=== PATIENT | male | born 1945 | race Caucasian/White ===

== ENCOUNTER 2019-01-28 09:43 | Emergency (ER) | payer MEDICARE ==
--- OUTSIDE RECORDS SUMMARY | 2019-01-28 10:34 | XMS REPORT | Continuity of Care Document ---
:1945 External Reference #:[id number] Author Name Cheryl Hernández M.D. Address [address] 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 Onset: 01/02/2019 Screening for malignant neoplasm of prostate Cheryl Hernández M.D. Onset: 04/2018 Screening for malignant neoplasm of colon Slick Thomas MD Onset: 09/13/2016 Social History Type Date Description Comments Sex Unknown Tobacco Use Start: Unknown Never Smoked Cigarettes Smokeless Tobacco Never Used Smokeless Tobacco ETOH Use Occasionally consumes alcohol Tobacco Use Start: Unknown Patient has never smoked Recreational Drug Use Denies Drug Use Smoking Status Reviewed: 12/27/18 Patient has never smoked Allergies, Adverse Reactions, Alerts Active Allergies Reaction Severity Comments Date Aleve Difficulty breathing, Flushing 11/28/2018 Inactive Allergies NKDA 12/03/2013 Medications Active Medications SIG Qnty Indications Ordering Provider Date Losartan Potassium 1 po qd 30tabs Unknown 50mg Tablets Atorvastatin Calcium Take One Tablet Unknown 10mg By Mouth Every Tablets Evening Tylenol 8 Hour one by mouth Unknown 650mg every 6 hours as Tablets ER needed pain History Medications Cephalexin 1 tab by mouth once 30tabs Jabari Hernándezud, 12/23/2018 - 500mg given in office before M.D. 12/24/2018 Tablets procedure with take home pack with instructions Gentamicin Sulfate given once in office 2ml EdgarJoannajay, 12/23/2018 - for in office M.D. 12/24/2018 40mg/ml Solution procedure. given intramuscular - 80 mg Medications Administered in Office Medication SIG Qnty Indications Ordering Provider Date Injection Gentamicin To Cheryl Hernández M.D. 12/23/2018 40MG/ML Injection Depomedrol 40mg/1cc Ayan Galloway D.O. 12/01/2013 (methylprednisolone acetate) Injection Immunizations Description No Information Available Vital Signs Date Vital Result Comment 01/02/2019 3:57pm BP Systolic 129 mmHg BP Diastolic 70 mmHg Body Temperature 98.2 F Heart Rate 60 /min Respiratory Rate 16 /min Height 62 inches 5'2" Weight 156.12 lb BMI (Body Mass Index) 28.6 kg/m2 BSA (Body Surface Area) 1.72 m2 [place] body weight in kilograms 54 kg O2 % BldC Oximetry 95 % Pain Level 0 12/23/2018 3:10pm BP Systolic 153 mmHg BP Diastolic 90 mmHg Heart Rate 65 /min Respiratory Rate 16 /min O2 % BldC Oximetry 97 % Results Test Date Facility Test Result H/L Range Note Urine Dipstick 12/23/2018 [facility] Ua Color Yellow Yellow Ua Clarity Clear Clear Ua Leuko Negative Negative Ua Nitrite Negative Negative Ua Urobilinogen 0.2 0.2 - 1.0 E.U./dL Ua Protein Negative Negative Ua PH 5.5 Low 6.5-7.5 Ua Blood 25 High Negative Ua Specific [place] 1.030 1.010-1.030 Ua Ketones Negative Negative Ua Bilirubin Negative Negative Ua Glucose Negative Negative Ua RFX Micro & Culture 11/28/2018 [facility] Urine Color YELLOW Yellow [address] [place] [address] [phone] Urine Clarity CLEAR Clear Urine Glucose - Dipstick NEGATIVE mg/dL Negative Urine Bilirubin - Dipstick NEGATIVE Negative Urine Ketone NEGATIVE mg/dL Negative Urine Specific [place] 1.025 Normal 1.010-1.030 Urine Blood SMALL Abnormal Negative Urine PH 5.5 Low 6.5-7.5 Urine Protein - Dipstick NEGATIVE mg/dL Negative Urine Urobilinogen - Dipstick 0.2 E.U./dL Normal 0.2-1.0 Urine Nitrite - Dipstick NEGATIVE Negative Urine Leuk Esterase NEGATIVE Negative Urine RBC 0-2 rbc/hpf 0-2 Urine WBC 0-2 wbc/hpf 0-7 Urine Epithelial Cells FEW /lpf None Seen 1 Z12.5 Procedures Date Code Description Status 12/23/2018 42188 Theraputic Or Diagnostic Injection Completed 12/23/2018 12115 Ultrasound Guide For Needle Biopsy Completed 12/23/2018 97099 Ultrasound Transrectal Completed 12/23/2018 03146 Biopsy Prostate Needle Or Punch Completed 04/30/1995 [id number] Colonoscopy Completed Medical Devices Description No Information Available Encounters Type Date Location Provider Dx Diagnosis Office Visit 11/28/2018 Urology Cheryl Hernández [id number] Encounter for 1:15p [place] screening for malignant neoplasm of prostate Assessments Date Code Description Provider 01/02/2019 C61 Malignant neoplasm of prostate Cheryl Hernández M.D. 12/23/2018 R97.20 Elevated prostate specific antigen [PSA] Cheryl Hernández M.D. 11/28/2018 [id number] Encounter for screening for malignant Cheryl Hernández M.D. neoplasm of prostate Plan of Treatment Future Appointment(s):07/03/2019 11:15 am - Cheryl Hernández M.D. at Urology Functional Status Description No Information Available Mental Status Description No Information Available Referrals Description No Information Available
[2019-01-28 10:50] VITALS: BP 155/73
--- NOTE | 2019-01-28 11:12 | UC ---
Skin Complaint HPI - HPI Summary HPI Summary: Rash x 2 days rash is located on right side of scalp, bilateral legs and right arm the rash is red , raised, itchy and burning + exposure to poison michelle no fever, no chills - History of Current Complaint Chief Complaint: UCSkin Time Seen by Provider: 01/28/19 11:00 Stated Complaint: SKIN COMPLAINT Hx Obtained From: Patient Onset/Duration: Gradual Onset, Lasting Days - 2, Still Present Timing: Constant Onset Severity: Moderate Current Severity: Moderate Pain Intensity: 3 Location: Discrete - scalp, both legs and right arm Character: Swelling, Pruritus, Redness, Raised Aggravating Factor(s): Touch Alleviating Factor(s): Nothing Associated Signs & Symptoms: Positive: Rash, Tenderness. Negative: Nausea, Vomiting, Fever, Chills - Allergy/Home Medications Allergies/Adverse Reactions: Allergies Allergy/AdvReac Type Severity Reaction Status Date / Time naproxen [From Aleve] Allergy Intermediate Dizziness, Verified 01/28/19 10:48 diaphoresis, lightheadedness PMH/Surg Hx/FS Hx/Imm Hx Cardiovascular History: Hypertension Cancer History: Prostate Cancer - Surgical History Surgical History: Yes Surgery Procedure, Year, and Place: left shoulder rotator cuff repair; LEFT KNEE - Family History Known Family History: Positive: Hypertension - Social History Alcohol Use: Weekly Alcohol Amount: 1-2 DRINKS Substance Use Type: None Smoking Status (MU): Never Smoked Tobacco Review of Systems All Other Systems Reviewed And Are Negative: Yes Constitutional: Positive: Negative Skin: Positive: Rash Eyes: Positive: Negative ENT: Positive: Negative Respiratory: Positive: Negative Is Patient Immunocompromised?: No Physical Exam Triage Information Reviewed: Yes Appearance: Well-Appearing, No Pain Distress, Well-Nourished Vital Signs: Initial Vital Signs Temp 97.7 F 01/28/19 10:43 Pulse 61 01/28/19 10:43 Resp 16 01/28/19 10:43 BP 155/73 01/28/19 10:43 Pulse Ox 97 01/28/19 10:43 Vital Signs Reviewed: Yes Eye Exam: Normal Eyes: Positive: Conjunctiva Clear ENT: Positive: Normal ENT inspection, Hearing grossly normal, Pharynx normal Neck: Positive: Supple, Nontender, No Lymphadenopathy Respiratory: Positive: Chest non-tender, Lungs clear, Normal breath sounds Cardiovascular: Positive: RRR, No Murmur, Pulses Normal Skin: Positive: Rashes - pabular rash on both legs, right wrist , right side of scalp Procedures - Sedation Patient Received Moderate/Deep Sedation with Procedure: No Course/Dx - Diagnoses Provider Diagnosis: Poison michelle dermatitis Discharge ED - Sign-Out/Discharge Documenting (check all that apply): Patient Departure All imaging exams completed and their final reports reviewed: No Studies - Discharge Plan Condition: Stable Disposition: HOME Prescriptions: predniSONE TAB* [Deltasone 20 MG TAB*] 40 mg PO DAILY #10 tab Triamcinolone 0.1% CREAM(NF) [Kenalog Cream 0.1%(NF)] 1 applic TOPICAL BID #30 gm Patient Education Materials: Poison Michelle (ED) Referrals: Mark Queen MD [Primary Care Provider] - If Needed - Billing Disposition and Condition Condition: STABLE Disposition: Home
== END 2019-01-28 11:13 | disposition home or self-care (01) ==
LOC: UCCORT 09:43
DX: L23.7 Allergic contact dermatitis due to plants, except food (principal); Z88.8 Allergy status to other drugs, medicaments and biological substances; I10 Essential (primary) hypertension; Z85.46 Personal history of malignant neoplasm of prostate
CPT/HCPCS: 99212; G0463

== ENCOUNTER 2019-02-01 11:02 | Emergency (ER) | payer MEDICARE ==
[2019-02-01 11:23] VITALS: BP 177/81
--- NOTE | 2019-02-01 12:44 | UC ---
Skin Complaint HPI - HPI Summary HPI Summary: 73 year old male with PMH + for HTN, elevated cholesterol, presents after being treated for contact dermatitis, ? poison oak, on 01/28. Patient states several days before being seen he was in [place], developed rash that started on L medial ankle, was prescribed Prednisone 40mg for 5 days, patient took last dose today but notes rash is spreading. noted being itchy all over, worse over rash. no fever, chills, no abdominal pains. Today feels "shaky", did not have that other days after taking steroids. no prior rxns to plants. - History of Current Complaint Chief Complaint: UCRash Time Seen by Provider: 02/01/19 11:36 Stated Complaint: RE-CK SKIN COMPLAINT Hx Obtained From: Patient Onset/Duration: Sudden Onset, Lasting Weeks Onset Severity: Moderate Pain Intensity: 5 Pain Scale Used: 0-10 Numeric Location: Generalized - Allergy/Home Medications Allergies/Adverse Reactions: Allergies Allergy/AdvReac Type Severity Reaction Status Date / Time naproxen [From Aleve] Allergy Intermediate Dizziness, Verified 01/28/19 10:48 diaphoresis, lightheadedness PMH/Surg Hx/FS Hx/Imm Hx Previously Healthy: No - htn Cardiovascular History: Hypertension - Surgical History Surgical History: Yes Surgery Procedure, Year, and Place: left shoulder rotator cuff repair; LEFT KNEE - Family History Known Family History: Positive: Hypertension, Non-Contributory - Social History Alcohol Use: Weekly Alcohol Amount: 1-2 DRINKS Substance Use Type: None Smoking Status (MU): Never Smoked Tobacco Review of Systems All Other Systems Reviewed And Are Negative: Yes Constitutional: Positive: Negative Skin: Positive: Rash Psychological: Positive: Anxious Is Patient Immunocompromised?: No Physical Exam Triage Information Reviewed: Yes Appearance: Well-Appearing, No Pain Distress, Well-Nourished Vital Signs: Initial Vital Signs Temp 98 F 02/01/19 11:19 Pulse 61 02/01/19 11:19 Resp 15 02/01/19 11:19 BP 177/81 02/01/19 11:19 Pulse Ox 99 02/01/19 11:19 Vital Signs Reviewed: Yes Eyes: Positive: Conjunctiva Clear ENT: Positive: Pharynx normal, TMs normal, Uvula midline. Negative: Pharyngeal erythema, Tonsillar swelling, Tonsillar exudate Neck: Positive: Supple, Nontender, No Lymphadenopathy Respiratory: Positive: Chest non-tender, Lungs clear, Normal breath sounds, No respiratory distress, No accessory muscle use. Negative: Crackles, Rhonchi, Stridor, Wheezing Cardiovascular: Positive: RRR Abdomen Description: Positive: Nontender, No Organomegaly Neurological: Positive: Alert Skin: Positive: Other - L ankle medially with ~ 4cm irregular lesion, non- blanching, not raised with multiple petechia around area extending to mid calf. on abdomen, diffuse ~ 1mm moderate erythema lesions, some non-palpable, others nodular, with irregular borders. b/l forearms, hands with small ~ 1mm mild erythematous papules, area over wrist with coalesced lesions, non- blanching, violacious. Course/Dx - Course Course Of Treatment: Possible vasculitic rash with increasing symptoms, patient sent to ER for renal workup/ further eval. patient seen and discussed with Dr. Santa. - Differential Diagnoses - Skin Complaint Differential Diagnoses: Contact Dermatitis - Diagnoses Provider Diagnosis: Rash Discharge ED - Sign-Out/Discharge Documenting (check all that apply): Patient Departure All imaging exams completed and their final reports reviewed: No Studies - Discharge Plan Condition: Good Disposition: HOME-RECOMMEND TO ED Patient Education Materials: Acute Rash (ED) Referrals: Mark Queen MD [Primary Care Provider] - Additional Instructions: Due to type of rash with increasing symptoms despite being on steroids, recommended go to ER for evaluation, blood work. - Billing Disposition and Condition Condition: GOOD Disposition: Home-Recommend to ED
== END 2019-02-01 12:04 | disposition home health service (06) ==
LOC: UCCORT 11:02
DX: R21 Rash and other nonspecific skin eruption (principal); I10 Essential (primary) hypertension; Z88.8 Allergy status to other drugs, medicaments and biological substances
CPT/HCPCS: 99212; G0463